=== PATIENT | female | born 1950 | race Hispanic/Latino ===

== ENCOUNTER → 2019-04-20 | Outpatient (CLI) | payer MEDICARE | END | disposition home or self-care (01) | LOC: OIH 15:17 | PROVIDERS: ATTEND Internal Medicine | DX: M17.0 Bilateral primary osteoarthritis of knee (principal); M06.4 Inflammatory polyarthropathy | CPT/HCPCS: 73030; 73560 ==

== ENCOUNTER 2022-01-25 06:03 | Day surgery (SDC) | payer MEDICARE ==
[2022-01-24 14:43] LABS: BASOPHILS % (AUTO) 0.4 % (0.0-5.0); EOSINOPHILS % (AUTO) 1.1 % (0.0-8.0); HEMATOCRIT 42.3 % (36-48); LYMPHOCYTES % (AUTO) 30.8 % (21.0-51.0); MEAN CORPUSCULAR HEMOGLOBIN 28.3 pg (27.0-33.0); MEAN CORPUSCULAR HGB CONC 32.9 g/dL (32.0-36.0); MONOCYTES % (AUTO) 7.3 % (3.0-13.0); PLATELET COUNT (AUTO) 338 K/uL (130-400); RED BLOOD CELL COUNT(AUTO) 4.92 MIL/uL (4.00-5.50); WHITE BLOOD COUNT (AUTO) 10.9 K/uL (4.8-10.8)
[2022-01-24 14:44] LABS: APPEARANCE,URINE CLEAR (CLEAR); BILIRUBIN,URINE NEGATIVE (NEGATIVE); COLOR,URINE COLORLESS (YELLOW); GLUCOSE, URINE (UA) NEGATIVE (NEGATIVE); KETONES,URINE NEGATIVE (NEGATIVE); LEUKOCYTE ESTERASE ,URINE 250 Leu/uL (NEGATIVE); NITRATE,URINE NEGATIVE (NEGATIVE); OCCULT BLOOD,URINE NEGATIVE (NEGATIVE); PH,URINE 6.5 (5.0-8.0); PROTEIN,URINE NEGATIVE (NEGATIVE); UROBILINOGEN,URINE 0.2 mg/dL (0.2-1.0)
[2022-01-24 14:48] LABS: BACTERIA,URINE RARE /HPF (None Seen); MUCUS,URINE RARE LPF (None Seen); SQUAMOUS EPITHELIAL CELL,UR MOD /HPF (0-2)
[2022-01-24 14:50] LABS: CREATININE 0.8 mg/dL (0.5-1.5); POTASSIUM 4.6 mmol/L (3.5-5.1)
[2022-01-24 14:51] LABS: INR 0.93 (0.85-1.15); PROTHROMBIN TIME 10.1 SEC (9.6-11.6)
[2022-01-24 14:52] LABS: PARTIAL THROMBOPLASTIN TIME 26.3 SEC (26.3-35.5)
[2022-01-24 15:01] VITALS: BP 167/80
[2022-01-25] VITALS (10 sets, daily range): BP systolic 121–164; BP diastolic 63–73
[~2022-01-25] VITALS: Ht 154.9 cm; Wt 102.5 kg
[~2022-01-25 06:03] MED LIST: AEC81 PO; AMLO-258 PO; DULO30CA52 PO; LISI1TAB51 PO; METF-444 PO; METO75TA PO; NAPR-1023 PO; SIMV-43 PO; SPIR25TA6 PO
[2022-01-25] MEDS ORDERED: DiphenhydrAMINE HCL 50 MG/ML VIAL ONE (06:18)
[2022-01-25] MEDS ORDERED: 0.9%NACL 1000ML 1,000 ML IV ONE (06:18)
[2022-01-25] MEDS ORDERED: LIDOCAINE HCL 1% 20 ML VIAL ONE (07:05)
[2022-01-25] MEDS ORDERED: IOHEXOL-350 50ML VIAL IV ONE (07:05)
[2022-01-25] MEDS ORDERED: IOHEXOL 350 MG/ML 100ML INFUS..BTL IV ONE (07:05)
[2022-01-25] MEDS ORDERED: NITROGLYCERIN 50MG VIAL ONE (07:05)
[2022-01-25] MEDS ORDERED: HEPARIN 10,000 UNIT/10ML (1,000 UNIT/ML) VIAL ONE (07:05)
[2022-01-25] MEDS ORDERED: FENTANYL CITRATE PF 50 MCG/1 ML 2ML VIAL ONE (07:06)
[2022-01-25] MEDS ORDERED: MIDAZOLAM HCL 1 MG/ML 2ML VIAL ONE (07:06)
[2022-01-25] MEDS ORDERED: VERAPAMIL HCL 2.5 MG/ML VIAL ONE (07:51)
[2022-01-25] MEDS ORDERED: DiphenhydrAMINE HCL 50 MG/ML VIAL IVP ONE (08:00)
[2022-01-25] MEDS ORDERED: 0.9%NACL 1000ML 1,000 ML IV SCH ×2 (08:00→09:00)
[2022-01-25] MEDS ORDERED: DEXTROSE 50%-WATER 50 ML DISP.SYRIN IV PRN (09:00)
[2022-01-25] MEDS ORDERED: INSULIN HUMULIN R 100 UNIT/ML 3ML SQ SCH (11:30)
== END 2022-01-25 12:55 | disposition home or self-care (01) ==
LOC: DAH 06:03
PROVIDERS: ATTEND Internal Medicine Interventional Cardiology
DX: I25.10 Atherosclerotic heart disease of native coronary artery without angina pectoris (principal); I72.8 Aneurysm of other specified arteries; I44.7 Left bundle-branch block, unspecified; I10 Essential (primary) hypertension; I42.9 Cardiomyopathy, unspecified; E11.9 Type 2 diabetes mellitus without complications; R42 Dizziness and giddiness; E78.2 Mixed hyperlipidemia; Z88.0 Allergy status to penicillin; Z79.82 Long term (current) use of aspirin; Z79.899 Other long term (current) drug therapy; Z79.84 Long term (current) use of oral hypoglycemic drugs; Z79.01 Long term (current) use of anticoagulants; Z98.890 Other specified postprocedural states
CPT/HCPCS: 80048; 85025; 85610; 85730; 87088; 81001; 36415; 93005; 93458; 82948 ×2; C1769; C1894; J1200; J3010; J7030 ×2; J1644 ×2; J2250; J3490 ×2; Q9967 ×2; A4215; A4222; A4221; A4663; A4216; A4606; Q9965; A4223 ×3; 96360; 96361; 99156; 99157

== ENCOUNTER 2024-05-22 10:14 | Emergency (ER) | payer MEDICARE ==
[~2024-05-22] VITALS: Ht 152.4 cm; Wt 99.8 kg
[~2024-05-22 10:14] MED LIST changes: -AEC81 PO; -AMLO-258 PO; -DULO30CA52 PO; -LISI1TAB51 PO; -METF-444 PO; -METO75TA PO; -NAPR-1023 PO; -SPIR25TA6 PO
[2024-05-22] MEDS ORDERED: IOHEXOL 350 MG/ML 100ML INFUS..BTL IV ONE (10:15)
[2024-05-22 10:31] LABS: BASOPHILS # (AUTO) 0.04 K/uL (0.00-0.20); BASOPHILS % (AUTO) 0.6 % (0.0-5.0); EOSINOPHILS # (AUTO) 0.08 K/uL (0.00-0.70); EOSINOPHILS % (AUTO) 1.1 % (0.0-8.0); HEMATOCRIT 44.9 % (36-48); IMMATURE GRANULOCYTE ABSOLUTE 0.03 K/uL (0-1); LYMPHOCYTES # (AUTO) 2.2 K/uL (1.0-4.8); LYMPHOCYTES % (AUTO) 31.1 % (21.0-51.0); MEAN CORPUSCULAR HEMOGLOBIN 28.9 pg (27.0-33.0); MEAN CORPUSCULAR HGB CONC 33.2 g/dL (32.0-36.0); MONOCYTES # (AUTO) 0.4 K/uL (0.1-1.0); MONOCYTES % (AUTO) 6.1 % (3.0-13.0); NEUTROPHILS # (AUTO) 4.3 K/uL (1.8-7.7); NEUTROPHILS % (AUTO) 60.7 % (40.0-77.0); PLATELET COUNT (AUTO) 221 K/uL (130-400); RED BLOOD CELL COUNT(AUTO) 5.16 MIL/uL (4.00-5.50); RED CELL DISTRIBUTION WIDTH 13.5 % (11.0-15.5); WHITE BLOOD COUNT (AUTO) 7.1 K/uL (4.8-10.8)
[2024-05-22 10:51] LABS: ALBUMIN 3.2 g/dL (3.5-5.0); BILIRUBIN,DIRECT 0.2 mg/dL (0.0-0.3); BILIRUBIN,TOTAL 0.8 mg/dL (0.2-1.0); CREATININE 0.7 mg/dL (0.5-1.0); POTASSIUM 4.2 mmol/L (3.5-5.1); TOTAL PROTEIN, SERUM 7.1 g/dL (6.0-8.3)
--- NOTE | 2024-05-22 10:52 | HMCIMG ---
CHEST 1VW HISTORY: Weakness COMPARISON: 10/09/2023 FINDINGS: A frontal projection of the chest was obtained. Mild bilateral pulmonary infiltrates are seen may be related to mild pulmonary vascular congestion with possible superimposed pneumonitis. The heart is borderline enlarged. Pacemaker is seen entering from the left. Degenerative changes are seen. IMPRESSION: 1. Mild bilateral pulmonary infiltrates are seen may be related to mild pulmonary vascular congestion with possible superimposed pneumonitis.
[2024-05-22 10:55] LABS: B-TYPE NATRIURETIC PEPTIDE 676 pg/mL (0-100)
--- NOTE | 2024-05-22 11:03 | ERN ---
General Chief Complaint: Weakness Stated Complaint: WEAKNESS AND BACK PAIN Time Seen by MD: 10:28 History of Present Illness Initial Comments 74-year-old female brought in by EMS for home for weakness in her arms in her legs, generalized, as well as pain to the back it between her shoulder blades. She reports sudden onset of pain that was 9/10. It is located in the center of the back did not radiate. It is nonpositional. It was brief and has resolved since EMS picked up the patient. She felt a she was very weak in both of her arms and her legs when this happened. She felt nausea without vomiting. No dyspnea. No syncope. EMS gave 324 mg of oral aspirin. Patient currently is pain-free and symptomatic although she feels generally weak. She denies any recent fevers, chills, chest pains, cough congestion vomiting diarrhea or other infectious type symptoms. Medical history: CAD, stent placement, pacemaker, hypertension, diabetes PCP: Andres Cardiologis: Jorge A Jean Baptiste Allergies: Coded Allergies: Penicillins (Verified Allergy, Unknown, 05/22/24) HIVES ALL OVER Home Meds Reported Medications Simvastatin (Simvastatin) 20 Mg Tablet, 20 MG PO HS, TAB 01/24/22 Past Medical History Past Medical History: Diabetes-Type II, High Cholesterol, Heart Disease, Hypertension, [place] Past Surgical History: Appendectomy, Hysterectomy, Cholecystectomy, Pacer/AICD Surgical History Other: HEART STENTS ROS Dictation CONSTITUTIONAL: No chills, no fever, no weakness, no diaphoresis, no malaise. HEAD/FACE: No signs of trauma. EENT: No eye pain, no blurred vision, no tearing, no double vision, no ear pain, no ear discharge, no nose pain, no nasal congestion, no throat pain, no throat swelling, no mouth pain. RESPIRATORY: No cough, no orthopnea, no SOB, no stridor, no wheezing. CARDIOVASCULAR: No chest pain, no edema, no palpitations, no syncope. GASTROINTESTINAL/ABDOMINAL: No abdominal pain, no constipation, no diarrhea, no nausea, no vomiting. GENITOURINARY: No abnormal discharge, no dysuria, no frequent urination, no hematuria. No complaints of pain in the genitals. MUSCULOSKELETAL: Upper back pain and weakness INTEGUMENTARY: No change in color, no change in hair/nails, no dryness, no lesion, no lumps, no rash. NEUROLOGICAL/PSYCH: No anxiety, not depressed, no emotional problem, no headache, no numbness, no pre-existing deficit, no history of seizures, no tremors, no weakness. HEMATOLOGIC/LYMPHATIC: Not anemic, no history of blood clots, no apparent bleeding, no bruising, glands not swollen. All Systems Negative, Except as Noted. Physical Exam Physical Exam Dictation VITAL SIGNS: Reviewed. GENERAL APPEARANCE: Alert, oriented x3, no acute distress, obese. HEAD AND FACE: Non-traumatic. EYES: PERRL, pink conjunctivas, eyelid no trauma, anterior chamber clear. EARS: Pinnas intact and no signs of trauma or erythema. Ear canals clear and no discharge. TMs no erythema. NOSE: No discharge, no bleeding. OROPHARYNX: Mouth normal, teeth no caries, tongue pink. Pharynx clear, no erythema. Tonsils no exudates, no abscesses noted. Mucous membrane moist. NECK: Supple, non-tender, no thyromegaly, no masses, no JVD, no bruits. BREAST: Deferred. CHEST: No tenderness, no crepitus, no paradoxical movement, no retractions. LUNGS: Clear, well-ventilated, symmetric, no rales, no wheezing, no rhonchi, no stridor, good breath sounds bilaterally. HEART: Regular rate, regular rhythm, no murmur, no gallops. VASCULAR: No peripheral edema. ABDOMEN: Soft, positive bowel sounds, nondistended, no guarding, nontender, no rebound, no masses no hepatomegaly, no splenomegaly, no Richardson's sign, no hernias. RECTAL: Deferred. GENITAL: Deferred. NEUROLOGICAL: Normal speech, gross motor function intact, gross sensory function intact. MUSCULOSKELETAL: Neck nontender, full range of motion, back nontender, full range of motion. EXTREMITIES: Nontender, full range of motion. SKIN: Color pink, dry, no turgor, no rash, no lacerations, no abrasions, no contusions. LYMPHATICS: Deferred. Results Laboratory and Microbiology Lab and Micro Result Laboratory Tests Test 05/22/24 10:26 05/22/24 11:22 White Blood Count 7.1 K/uL (4.8-10.8) Red Blood Count 5.16 MIL/uL (4.00-5.50) Hemoglobin 14.9 g/dL (12.0-16.0) Hematocrit 44.9 % (36-48) Mean Corpuscular Volume 87.0 fL (79-99) Mean Corpuscular Hemoglobin 28.9 pg (27.0-33.0) Mean Corpuscular Hemoglobin Concent 33.2 g/dL (32.0-36.0) Red Cell Distribution Width 13.5 % (11.0-15.5) Platelet Count 221 K/uL (130-400) Mean Platelet Volume 9.6 fL (7.5-10.5) Immature Granulocyte % (Auto) 0.4 % (0-1) Neutrophils (%) (Auto) 60.7 % (40.0-77.0) Lymphocytes (%) (Auto) 31.1 % (21.0-51.0) Monocytes (%) (Auto) 6.1 % (3.0-13.0) Eosinophils (%) (Auto) 1.1 % (0.0-8.0) Basophils (%) (Auto) 0.6 % (0.0-5.0) Neutrophils # (Auto) 4.3 K/uL (1.8-7.7) Lymphocytes # (Auto) 2.2 K/uL (1.0-4.8) Monocytes # (Auto) 0.4 K/uL (0.1-1.0) Eosinophils # (Auto) 0.08 K/uL (0.00-0.70) Basophils # (Auto) 0.04 K/uL (0.00-0.20) Absolute Immature Granulocyte (auto 0.03 K/uL (0-1) Nucleated Red Blood Cells 0.0 % (0.0-0.19) D-Dimer Quantitative (PE/DVT) 788 ng/mL (0-500) *H Sodium Level 142 mmol/L (136-145) Potassium Level 4.2 mmol/L (3.5-5.1) Chloride Level 108 mmol/L (101-111) Carbon Dioxide Level 31 mmol/L (21-32) Blood Urea Nitrogen 11 mg/dL (7-18) Creatinine 0.7 mg/dL (0.5-1.0) Glomerular Filtration Rate Calc 91 mL/min (>90) Random Glucose 137 mg/dL (70-105) H Lactic Acid Level 1.4 mmol/L (0.8-2.5) Total Calcium 9.2 mg/dL (8.5-10.1) Total Bilirubin 0.8 mg/dL (0.2-1.0) Direct Bilirubin 0.2 mg/dL (0.0-0.3) Aspartate Amino Transf (AST/SGOT) 33 U/L (10-37) Alanine Aminotransferase (ALT/SGPT) 35 U/L (12-78) Alkaline Phosphatase 109 U/L (50-136) Troponin I High Sensitivity 26 ng/L (4-50) B-Type Natriuretic Peptide 676 pg/mL (0-100) H Total Protein 7.1 g/dL (6.0-8.3) Albumin 3.2 g/dL (3.5-5.0) L Lipase 45 U/L (16-77) Urine Color LIGHT-YELLOW (YELLOW) Urine Appearance CLEAR (CLEAR) Urine pH 7.5 (5.0-8.0) Urine Specific [place] 1.006 (1.001-1.031) Urine Protein NEGATIVE mg/dL (NEGATIVE) Urine Glucose (UA) NEGATIVE mg/dL (NEGATIVE) Urine Ketones NEGATIVE mg/dL (NEGATIVE) Urine Occult Blood NEGATIVE (NEGATIVE) Urine Nitrate NEGATIVE (NEGATIVE) Urine Bilirubin NEGATIVE mg/dL (NEGATIVE) Urine Urobilinogen 0.2 mg/dL (0.2-1.0) Urine Leukocyte Esterase NEGATIVE [place]u/uL MDM CC: upper back pain and bilateral arm weakness, since resolved. historian: Patient Comorbidities: Diabetes type 2, DLD, CAD, HTN Limitations by social determinants of health: None Differential diagnosis: Cardiac disease, musculoskeletal pain, PE, TAD, pancreatitis, other Vital signs: Stable, remained stable in the ER Clinical exam: Unremarkable. normal heart tones, equal pulses, neurovascularly intact, equal oracle adf consultant strength bilaterally, NIHSS of 0. EKG: Sinus rhythm, rate 94, left axis deviation, left bundle-branch block morpho logy, delayed R-wave progression. No STEMI. No ischemia. Independently interpreted by me. CXR (independently ordered and interpreted by me ): No cardiomegaly pleural effusions or focal infiltrates. There has pacemaker. Labs (independently ordered and interpreted by me ): A normal CBC, normal coags, metabolic panel normal, liver enzymes normal, lactic acid normal, troponin x2 normal, BNP mildly elevated 676, lipase normal. Urinalysis unremarkable. D-dimer comes back elevated. I do want to rule out a dissection although I have very low suspicion. CTA shows no signs of aortic dissection, no signs of pulmonary embolism. Patient has a heart score of four, but she was no current cardiac symptoms. She had a back pain. She was doing well troponins. Re-evaluation: Patient was completely asymptomatic. She has no complaints. Low suspicion for ACS, significant spinal column abnormality, no signs of concussion syndrome. Lipase is normal no biliary pathology. No signs of lung pathology. I suspect that she may have had an some musculoskeletal discomfort. Plan: I offered the patient admission since she is high-risk for cardiac disease. She reports that she feels much better, she is currently pain-free, she has no symptoms, and she reports that she prefers to go home at this time. She reports that she has a good follow up. It was Saturday, and she reports that she can follow up with the primary doctor on Saturday morning. She says that she will continue with her home medicines and so return to the emergency department if she has any concerning symptoms. Notes that there was a delay in care while in the ER because the tube system was down and lab work was delayed. Also there was a delay in getting the CTA chest. ED Course Orders Procedure Category Date Status Time Cbc With Differential LAB 05/22/24 Complete 10:17 Basic Metabolic Panel LAB 05/22/24 Complete 10:17 B-Type Natriuretic LAB 05/22/24 Complete Peptide 10:17 Chest 1vw RAD 05/22/24 Resulted 10:17 12 Lead Ekg Tracing- EKG 05/22/24 Complete Technical 10:17 Lactic Acid LAB 05/22/24 Complete 10:17 Troponin I High LAB 05/22/24 Complete Sensitivity 10:19 D-Dimer LAB 05/22/24 Complete 10:28 Hepatic Function Panel LAB 05/22/24 Complete 10:26 Lipase LAB 05/22/24 Complete 10:26 Troponin I High LAB 05/22/24 In Process Sensitivity 10:55 Urinalysis Profile LAB 05/22/24 Complete 11:23 Ct Chest Pe Protocol CT 05/22/24 Resulted Wwo Cont 11:26 Vital Signs Date Time Temp Pulse Resp B/P (MAP) Pulse Ox O2 Delivery O2 Flow Rate FiO2 05/22/24 13:00 89 18 143/70 100 Room Air* 0 21 05/22/24 12:00 81 17 157/77 97 Room Air* 0 21 05/22/24 10:19 98.2 96 26 155/80 98 Room Air 0 DX & DISP Disposition: Discharge Departure Impression: Primary Impression: Upper back pain Condition: Stable Additional Instructions: There are no major abnormalities on your workup here today. Your vital signs have been stable here in the ED. Your EKG is unremarkable. Your lab work (CBC, BMP, lactic acid, liver function tests, troponin x2, lipase ) is unremarkable. Your BNP is mildly elevated. You can discuss this with your primary doctor. Your chest x-ray is unremarkable. The CTA of your chest shows no abnormalities. As we discussed, your symptoms may have been musculoskeletal in nature. That said, the diagnosis at this time is unclear. I do recommend that you immediately return to the emergency department if you have any concerning symptoms. Please follow up with your primary doctor early next week for re-evaluation and to discuss your recent emergency department visit. Referrals: SELF,REFERRAL (PCP) NENA JARAMILLO DO May 22, 2024 11:03
--- NOTE | 2024-05-22 11:23 | NUR ---
PT ASSISTED OOB TO BR TO VOID.
--- NOTE | 2024-05-22 11:26 | EKG ---
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
[2024-05-22 11:37] LABS: APPEARANCE,URINE CLEAR (CLEAR); BILIRUBIN,URINE NEGATIVE (NEGATIVE); GLUCOSE, URINE (UA) NEGATIVE (NEGATIVE); KETONES,URINE NEGATIVE (NEGATIVE); LEUKOCYTE ESTERASE ,URINE NEGATIVE Leu/uL (NEGATIVE); NITRATE,URINE NEGATIVE (NEGATIVE); OCCULT BLOOD,URINE NEGATIVE (NEGATIVE); PH,URINE 7.5 (5.0-8.0); PROTEIN,URINE NEGATIVE (NEGATIVE); UROBILINOGEN,URINE 0.2 mg/dL (0.2-1.0)
[2024-05-22 11:39] LABS: ADD UA MICROSCOPIC NO; COLOR,URINE LIGHT-YELLOW (YELLOW)
--- NOTE | 2024-05-22 13:02 | NUR ---
CTA CONSENT OBTAINED.
--- NOTE | 2024-05-22 13:36 | NUR ---
PT JUST RETURNED FROM CT SCAN
--- NOTE | 2024-05-22 13:57 | NUR ---
REPORT ENDORSED TO SHERRY PAULLUMPIA WRAPPER MAKER
--- NOTE | 2024-05-22 14:00 | NUR ---
ASSUMED PT CARE AT THIS TIME.
--- NOTE | 2024-05-22 14:03 | HMCIMG ---
CT CHEST PE PROTOCOL WWO CONT HISTORY: No additional history given. COMPARISON: None TECHNIQUE: CT angiography of the chest was performed. The study was performed using angiographic technique with maximum intensity projection reconstruction images. Patient was given 100 cc of Omnipaque through intravenous route. FINDINGS: No CT evidence of filling defect is seen to suggest pulmonary embolus. No CT evidence of aortic dissection is seen. There are mild interstitial fibrosis. Fatty changes of the liver are noted. No evidence of parenchymal disease is seen. No CT evidence of pleural effusion or pericardial effusion is seen. The heart is enlarged. No evidence of adrenal mass is seen. Degenerative changes of the spine are noted. IMPRESSION: 1. No CT evidence of acute pulmonary embolus is seen. CT was performed with one or more following dose reduction techniques: automated exposure control, adjustment of the mA and kv according to patient's size, or use of a iterative reconstruction technique.
[2024-05-22 15:03] VITALS: BP 149/68; PULSE 89; RESP 17; TEMP 98.2; O2SAT 99
== END 2024-05-22 15:03 | disposition home or self-care (01) ==
LOC: EDH 10:14
DX: M54.6 Pain in thoracic spine (principal); E11.9 Type 2 diabetes mellitus without complications; E78.00 Pure hypercholesterolemia, unspecified; I11.9 Hypertensive heart disease without heart failure; I25.10 Atherosclerotic heart disease of native coronary artery without angina pectoris; Z88.0 Allergy status to penicillin; Z90.49 Acquired absence of other specified parts of digestive tract; Z90.710 Acquired absence of both cervix and uterus; Z95.5 Presence of coronary angioplasty implant and graft; Z95.810 Presence of automatic (implantable) cardiac defibrillator
CPT/HCPCS: 99285; 71270; 71045; 80076; 84484 ×2; 80048; 83880; 83690; 85025; 85378; 83605; 81003; 36415; 93005; Q9967